=== PATIENT | male | born 1945 | race Caucasian/White ===

== ENCOUNTER → 2016-03-25 | Outpatient (CLI) | payer MEDICARE ==
[2016-03-25 10:06] LABS: PROTHROMBIN TIME 19.5 SEC (11.4-15.4)
== END ==
LOC: OD 09:10
PROVIDERS: ATTEND Internal Medicine
DX: Z79.01 Long term (current) use of anticoagulants (principal)
CPT/HCPCS: 36415; 85610

== ENCOUNTER → 2016-04-21 | Outpatient (CLI) | payer MEDICARE ==
[2016-04-21 09:42] LABS: PROTHROMBIN TIME 18.9 SEC (11.4-15.4)
== END ==
LOC: OD 08:15
PROVIDERS: ATTEND Internal Medicine
DX: Z79.01 Long term (current) use of anticoagulants (principal)
CPT/HCPCS: 36415; 85610

== ENCOUNTER → 2016-05-19 | Outpatient (CLI) | payer MEDICARE ==
[2016-05-19 10:24] LABS: PROTHROMBIN TIME 17.9 SEC (11.4-15.4)
== END ==
LOC: OD 09:13
PROVIDERS: ATTEND Internal Medicine
DX: Z79.01 Long term (current) use of anticoagulants (principal)
CPT/HCPCS: 36415; 85610

== ENCOUNTER → 2016-06-19 | Outpatient (CLI) | payer MEDICARE ==
[2016-06-19 11:58] LABS: PROTHROMBIN TIME 19.5 SEC (11.4-15.4)
== END ==
LOC: OD 10:51
PROVIDERS: ATTEND Internal Medicine
DX: Z79.01 Long term (current) use of anticoagulants (principal)
CPT/HCPCS: 36415; 85610

== ENCOUNTER → 2016-07-27 | Outpatient (CLI) | payer MEDICARE ==
[2016-07-27 10:51] LABS: PROTHROMBIN TIME 21.6 SEC (11.4-15.4)
== END ==
LOC: OD 09:31
PROVIDERS: ATTEND Internal Medicine
DX: Z79.01 Long term (current) use of anticoagulants (principal)
CPT/HCPCS: 36415; 85610

== ENCOUNTER → 2016-08-19 | Outpatient (CLI) | payer MEDICARE ==
[2016-08-19 11:42] LABS: PROTHROMBIN TIME 22.6 SEC (11.4-15.4)
== END ==
LOC: OD 10:41
PROVIDERS: ATTEND Internal Medicine
DX: Z79.01 Long term (current) use of anticoagulants (principal)
CPT/HCPCS: 36415; 85610

== ENCOUNTER → 2016-09-22 | Outpatient (CLI) | payer MEDICARE ==
[2016-09-22 12:21] LABS: PROTHROMBIN TIME 20.2 SEC (11.4-15.4)
== END ==
LOC: OD 11:18
PROVIDERS: ATTEND Internal Medicine
DX: Z79.01 Long term (current) use of anticoagulants (principal)
CPT/HCPCS: 36415; 85610

== ENCOUNTER → 2016-10-19 | Outpatient (CLI) | payer MEDICARE ==
[2016-10-19 12:53] LABS: PROTHROMBIN TIME 24.7 SEC (11.4-15.4)
== END ==
LOC: OD 11:50
PROVIDERS: ATTEND Internal Medicine
DX: Z79.01 Long term (current) use of anticoagulants (principal); Z51.81 Encounter for therapeutic drug level monitoring
CPT/HCPCS: 36415; 85610

== ENCOUNTER → 2016-11-24 | Outpatient (CLI) | payer MEDICARE ==
[2016-11-24 09:33] LABS: PROTHROMBIN TIME 23.3 SEC (11.4-15.4)
== END ==
LOC: OD 07:59
PROVIDERS: ATTEND Internal Medicine
DX: Z79.01 Long term (current) use of anticoagulants (principal)
CPT/HCPCS: 36415; 85610

== ENCOUNTER → 2017-01-19 | Outpatient (CLI) | payer MEDICARE ==
[2017-01-19 11:04] LABS: PROTHROMBIN TIME 26.6 SEC (11.4-15.4)
== END ==
LOC: OD 09:47
PROVIDERS: ATTEND Internal Medicine
DX: R79.1 Abnormal coagulation profile (principal)
CPT/HCPCS: 36415; 85610

== ENCOUNTER 2017-06-20 21:42 | Emergency (ER) | payer MEDICARE ==
--- NOTE | 2017-06-20 22:26 | ER Document Report ---
ED General - General Chief Complaint: Abdominal Pain Stated Complaint: OBED HEARTRATE,ABDOMINAL PAIN Time Seen by Provider: 06/20/17 22:09 Notes: Patient is a 72-year-old male who presents with 1 hour of severe generalized abdominal pain. He does describe this as an aching, stabbing, diffuse abdominal pain. Nothing improves or worsens the pain. He denies any history of similar pain in the past. He denies any known history of aortic pathology. He does have a history of atrial fibrillation is currently anticoagulated on warfarin. He denies fever, diarrhea, vomiting, chest pain or shortness of breath but notes that he had palpitations at the onset of his abdominal discomfort. He has not seen his primary doctor regarding today's concerns. He is currently following with urology for recurrent hematuria. TRAVEL OUTSIDE OF THE [place] IN LAST 30 DAYS: No Past Medical History - General Information source: Patient - Social History Smoking Status: Never Smoker Frequency of alcohol use: None Drug Abuse: None Lives with: Spouse/Significant other Family History: Reviewed & Not Pertinent Review of Systems - Review of Systems Notes: Constitutional: Negative for fever. HENT: Negative for sore throat. Eyes: Negative for visual changes. Cardiovascular: Negative for chest pain. Respiratory: Negative for shortness of breath. Gastrointestinal: Positive for abdominal pain and nausea Genitourinary: Negative for dysuria. Musculoskeletal: Positive for low back pain Skin: Negative for rash. Neurological: Negative for headaches, weakness or numbness. 10 point ROS negative except as marked above and in HPI. Physical Exam - Vital signs Vitals: Temp Pulse Resp BP Pulse Ox 97.9 F 83 16 222/114 H 99 06/20/17 22:02 06/20/17 22:02 06/20/17 22:02 06/20/17 22:02 06/20/17 22:02 Interpretation: Hypertensive Notes: PHYSICAL EXAMINATION: GENERAL: Moderately ill in appearance, diaphoretic and appears uncomfortable HEAD: Atraumatic, normocephalic. EYES: Pupils equal round and reactive to light, extraocular movements intact, sclera anicteric, conjunctiva are normal. ENT: nares patent, oropharynx clear without exudates. Dry mucous membranes. NECK: Normal range of motion, supple without lymphadenopathy LUNGS: Breath sounds clear to auscultation bilaterally and equal. No wheezes rales or rhonchi. HEART: Irregularly irregular rate and rhythm without murmurs ABDOMEN: Soft, no significant localization of abdominal pain on palpation. No rigidity. No organomegaly EXTREMITIES: Normal range of motion, no pitting or edema. No cyanosis. NEUROLOGICAL: No focal neurological deficits. Moves all extremities spontaneously and on command. PSYCH: Moderately anxious SKIN: Warm, Dry, normal turgor, no rashes or lesions noted. Course - Re-evaluation Re-evalutation: 06/20/17 22:24 Presentation of an ill-appearing male diaphoretic with severe hypertension associated abdominal pain. Patient states the abdominal pain started approximately 1 hour prior to arrival and has been ongoing since that time. He does have a history of atrial fibrillation and is anticoagulated with warfarin. Primary diagnostic concerns would be an aortic pathology either dissection or aneurysmal rupture versus possible mesenteric ischemia given his severe hypertension, pain out of proportion to exam on abdominal examination as well as his history of atrial fibrillation. I immediately went to assess this patient. He was placed on crop ranch hand. I did discuss with the patient the need for an immediate CT scan of the abdomen and pelvis. Will perform a CTA to evaluate for both aneurysmal pathology as well as possible mesenteric ischemia. I will not wait for a BUN/creatinine return as this is a very time sensitive diagnosis and I would want to study regardless of the patient's renal function given the severe nature of both possible diagnoses. Patient did complain of some palpitations earlier but denies any distinct chest pain. His EKG does show that he has a atrial fibrillation unchanged from prior. Will also obtain laboratories including coags and troponin. Will continue to reassess the patient frequently and he is considered to be in very guarded condition at this time. 06/20/17 23:02 Patient has had improvement of his blood pressure spontaneously although remains markedly elevated at [address] scan has been completed and results are pending. Labs otherwise unremarkable at this time. Continue to reassess the patient frequently and he overall appears much clinically improved at this time. 06/20/17 23:48 CT scan does demonstrate right-sided hydronephrosis with a possible mass in the left ureter without evidence of a ureteral calculus. The urinalysis shows hematuria but no evidence of infection. The remainder of the patient's laboratories are unremarkable. Pain control has been provided with fentanyl, Toradol with some improvement of the patient's symptoms. He is scheduled to follow-up with his urologist in 1 week regarding hematuria and I have asked him to please contact them sooner if his pain persists and is not completely controlled with medications we are discharging him home with. I have informed the patient that there is a possibility of malignancy in this context and he does understand. At this time will discharge with return precautions and follow -up recommendations. Verbal discharge instructions given a the bedside and opportunity for questions given. Medication warnings reviewed. Patient is in agreement with this plan and has verbalized understanding of return precautions and the need for primary care follow-up in the next 24-72 hours. - Vital Signs Vital signs: Temp Pulse Resp BP Pulse Ox 97.9 F 83 17 147/84 H 95 06/20/17 22:02 06/20/17 22:02 06/21/17 00:01 06/21/17 00:01 06/21/17 00:01 - Laboratory Result Diagrams: 06/20/17 22:20 06/20/17 22:20 Laboratory results interpreted by me: 06/20/17 06/20/17 06/20/17 22:20 22:20 22:20 WBC 10.7 H Seg Neutrophils % 85.7 H Lymphocytes % 8.2 L Absolute Neutrophils 9.2 H PT 30.4 H APTT 41.8 H BUN 25 H Est GFR (Non-Af Amer) 59 L Glucose 170 H Urine Protein Urine Glucose (UA) Urine Ketones Urine Blood 06/20/17 22:45 WBC Seg Neutrophils % Lymphocytes % Absolute Neutrophils PT APTT BUN Est GFR (Non-Af Amer) Glucose Urine Protein 30 H Urine Glucose (UA) 150 H Urine Ketones TRACE H Urine Blood LARGE H - Diagnostic Test Radiology reviewed: Reports reviewed - EKG Interpretation by Me Additional EKG results interpreted by me: 06/21/17 02:20 Atrial fibrillation, 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 No ST elevations or depressions. Critical Care Note - Critical Care Note Total time excluding time spent on procedures (mins): 36 Comments: Critical care time spent obtaining history from patient or surrogate, discussions with consultants, development of treatment plan with patient or surrogate, evaluation of patient's response to treatment, examination of patient , ordering and performing treatments and interventions, ordering and review of laboratory studies, re-evaluation of patient's condition, ordering and review of radiographic studies and review of old charts Discharge - Discharge Clinical Impression: Essential hypertension, Nausea Hydronephrosis Qualifiers: Hydronephrosis type: unspecified Qualified Code(s): N13.30 - Unspecified hydronephrosis Atrial fibrillation Qualifiers: Atrial fibrillation type: unspecified Qualified Code(s): I48.91 - Unspecified atrial fibrillation Abdominal pain Qualifiers: Abdominal location: generalized Qualified Code(s): R10.84 - Generalized abdominal pain Condition: Good Disposition: HOME, SELF-CARE Additional Instructions: Your CT scan does show that you have a blockage in the tube that connects your right kidney to your bladder. There is a possibility that this could be secondary to a malignancy. You need to follow-up with urology at your earliest ability. Please contact urologist tomorrow consider scheduling an appointment sooner than 1 week from now. You have been sent home with [place] which you can use as needed for pain. Alternatively you can take ibuprofen 600 mg and acetaminophen 1000 mg every 6 hours together as needed for pain. You may also take Zofran as needed for nausea or vomiting. Return to the emergency department if you develop persistent vomiting, worsening of your pain, fever greater than 101F, pass out, or have any other symptoms that are worrisome to you. Referrals: PEDRO GOMEZ MD [Primary Care Provider] - Follow up as needed
[2017-06-20 22:34] LABS: ABSOLUTE LYMPHOCYTES (AUTO) 0.9 10^3/uL (0.5-4.7); ABSOLUTE MONOCYTES (AUTO) 0.6 10^3/uL (0.1-1.4); ABSOLUTE NEUT (AUTO) 9.2 10^3/uL (1.7-8.2); BASOPHILS % (AUTO) 0.3 % (0-2); EOSINOPHILS % (AUTO) 0.3 % (0-6); HEMATOCRIT 44.8 % (37.9-51.0); HEMOGLOBIN 15.2 g/dL (13.5-17.0); LYMPHOCYTES % (AUTO) 8.2 % (13-45); MEAN CORPUSCULAR HEMOGLOBIN 31.6 pg (27.0-33.4); MEAN CORPUSCULAR HGB CONC 33.9 g/dL (32.0-36.0); MEAN CORPUSCULAR VOLUME 93 fl (80-97); MONOCYTES % (AUTO) 5.5 % (3-13); PLATELET COUNT 157 10^3/uL (150-450); RED CELL DISTRIBUTION WIDTH 13.7 % (11.5-14.0); SEGMENTED NEUTROPHILS % (AUTO) 85.7 % (42-78); TOTAL CELLS COUNTED % (AUTO) 100 %; WHITE BLOOD COUNT 10.7 10^3/uL (4.0-10.5)
[2017-06-20 22:51] LABS: ALANINE AMINOTRANSFERASE 29 U/L (21-72); ALKALINE PHOSPHATASE 91 U/L (38-126); ANION GAP 16 (5-19); ASPARTATE AMINO TRANSFERASE 27 U/L (17-59); BILIRUBIN,DIRECT 0.2 mg/dL (0.0-0.4); BILIRUBIN,TOTAL 0.9 mg/dL (0.2-1.3); BLOOD UREA NITROGEN 25 mg/dL (7-20); CALCIUM 9.9 mg/dL (8.4-10.2); CARBON DIOXIDE 24 mmol/L (22-30); CHLORIDE 103 mmol/L (98-107); GLUCOSE 170 mg/dL (75-110); SODIUM 143.1 mmol/L (137-145); TOTAL PROTEIN 8.2 g/dL (6.3-8.2)
[2017-06-20 22:55] LABS: INTERNATIONAL RATION (INR) 2.75; PARTIAL THROMBOPLASTIN TIME 41.8 SEC (23.5-35.8); PROTHROMBIN TIME 30.4 SEC (11.4-15.4)
--- NOTE | 2017-06-20 23:07 | RADIOLOGY REPORT (SQ) ---
EXAM DESCRIPTION: CTA ABDOMEN/PELVIS W WO CLINICAL HISTORY: 72 years Male, eval aortic dissection COMPARISON: None. TECHNIQUE: IV contrast. Coronal and sagittal reformat. This exam was performed according to our departmental dose-optimization program, which includes automated exposure control, adjustment of the mA and/or kV according to patient size and/or use of iterative reconstruction technique. FINDINGS: Moderate left hydronephrosis-hydroureter. Moderate left perinephric fat stranding. No obstructive radiopaque stone or lesion identified. 0.3 cm uncomplicated right renal stone. Seven cm right paracentral posterior urinary bladder diverticulum. Atherosclerosis. No aortic dissection, as queried. Mild lumbar dextroconvexity. Moderate coronary arterial calcification stenting. Emphysematous lung bases. Cholelithiasis. Old granulomatous disease of the liver. Minimal bilateral inguinal fat only hernia. Moderate disc desiccation. Inferior thorax, pancreas, adrenals, renal system, gastrointestinal tract, pelvic organs, lymphatics, vasculature, and musculoskeleton appear otherwise unremarkable. IMPRESSION: 1. Moderate grade obstruction of the left renal/ureteral collecting system. No obstructive radiopaque stone or lesion identified. Differential diagnosis includes neoplasm. Urology consultation advised. 2. A 7 cm urinary bladder diverticulum. 3. Cholelithiasis.
[2017-06-20 23:17] LABS: APPEARANCE,URINE CLEAR; BILIRUBIN,URINE NEGATIVE (NEGATIVE); COLOR,URINE STRAW; GLUCOSE, URINE 150 mg/dL (NEGATIVE); KETONES,URINE TRACE mg/dL (NEGATIVE); LEUKOCYTE ESTERASE,URINE NEGATIVE (NEGATIVE); NITRITE,URINE NEGATIVE (NEGATIVE); PROTEIN,URINE 30 mg/dL (NEGATIVE); UROBILINOGEN,URINE NEGATIVE mg/dL (<2.0)
[2017-06-20] MEDS ORDERED: KETOROLAC TROMETHAMINE INJ/PF 30 MG/1 ML SDV IV ONE (23:26)
[2017-06-20] MEDS ORDERED: FENTANYL CITRATE INJ/PF 100 MCG/2 ML AMPUL IV ONE (23:26)
[2017-06-20] MEDS ORDERED: ONDANSETRON HCL INJ/PF 4 MG/2 ML SDV IV ONE (23:26)
[2017-06-20] MEDS ORDERED: ONDANSETRON ODT 4 MG TAB (6 TAB/ER DISP) PO PRN (23:48)
[2017-06-20] MEDS ORDERED: HYDROCODONE/ACETAMINOPHEN 5-325 MG (6 TAB/ER DISP) PO PRN (23:48)
[2017-06-21 00:31] VITALS: BP 147/84
--- NOTE | 2017-06-21 06:16 | EKG REPORT ---
SEVERITY:- ABNORMAL ECG - ATRIAL FIBRILLATION RBBB AND LAFB : Confirmed by: Chip Scott MD 21-Jun-2017 06:15:50
== END 2017-06-21 00:15 | disposition home or self-care (01) ==
LOC: ER 21:42
DX: N13.30 Unspecified hydronephrosis (principal); R10.84 Generalized abdominal pain; I48.91 Unspecified atrial fibrillation; M54.5 Low back pain; I10 Essential (primary) hypertension; R11.0 Nausea; R61 Generalized hyperhidrosis; I45.2 Bifascicular block; Z79.01 Long term (current) use of anticoagulants
CPT/HCPCS: 93005; 99291; 96374; 96375; 86900; 86901; 36415; 86850; 85025; 85610; 85730; 80053; 81001; 84484; 74174; 93010; J3010; J1885; J2405; A9270 ×2

== ENCOUNTER 2017-07-12 15:04 | Inpatient (IN) | payer MEDICARE ==
--- NOTE | 2017-07-12 16:45 | RADIOLOGY REPORT (SQ) ---
EXAM DESCRIPTION: TIBIA FIBULA RIGHT COMPLETED DATE/TIME: 07/12/2017 4:36 pm REASON FOR STUDY: cellulitis of right leg COMPARISON: None. NUMBER OF VIEWS: Two views. TECHNIQUE: Two radiographic images acquired of the right tibia and fibula to include the knee and an kle in at least one projection. LIMITATIONS: None. FINDINGS: MINERALIZATION: Normal. BONES: No acute fracture or dislocation. No worrisome bone lesions. SOFT TISSUES: Vascular calcifications. No foreign body OTHER: No other significant finding. IMPRESSION: No evidence of osteomyelitis. TECHNICAL DOCUMENTATION: JOB ID: [id number] [employer]- All Rights Reserved Reading location - IP/workstation name: [email or web address]
[2017-07-12 17:01] LABS: ABSOLUTE EOSINOPHILS # (AUTO) 0.2 10^3/uL (0.0-0.6); ABSOLUTE LYMPHOCYTES (AUTO) 1.4 10^3/uL (0.5-4.7); ABSOLUTE MONOCYTES (AUTO) 0.8 10^3/uL (0.1-1.4); ABSOLUTE NEUT (AUTO) 3.7 10^3/uL (1.7-8.2); BASOPHILS % (AUTO) 0.4 % (0-2); EOSINOPHILS % (AUTO) 2.9 % (0-6); HEMATOCRIT 41.7 % (37.9-51.0); LYMPHOCYTES % (AUTO) 22.8 % (13-45); MEAN CORPUSCULAR HEMOGLOBIN 31.3 pg (27.0-33.4); MEAN CORPUSCULAR HGB CONC 33.7 g/dL (32.0-36.0); MEAN CORPUSCULAR VOLUME 93 fl (80-97); MONOCYTES % (AUTO) 13.3 % (3-13); PLATELET COUNT 157 10^3/uL (150-450); RED BLOOD COUNT 4.49 10^6/uL (4.35-5.55); RED CELL DISTRIBUTION WIDTH 13.6 % (11.5-14.0); SEGMENTED NEUTROPHILS % (AUTO) 60.6 % (42-78); TOTAL CELLS COUNTED % (AUTO) 100 %
[2017-07-12 17:21] LABS: ALANINE AMINOTRANSFERASE 27 U/L (21-72); ALBUMIN 4.3 g/dL (3.5-5.0); ALKALINE PHOSPHATASE 71 U/L (38-126); ANION GAP 13 (5-19); ASPARTATE AMINO TRANSFERASE 20 U/L (17-59); BILIRUBIN,DIRECT 0.2 mg/dL (0.0-0.4); BLOOD UREA NITROGEN 17 mg/dL (7-20); CALCIUM 9.6 mg/dL (8.4-10.2); CARBON DIOXIDE 30 mmol/L (22-30); CHLORIDE 104 mmol/L (98-107); GLUCOSE 171 mg/dL (75-110); SODIUM 146.6 mmol/L (137-145); TOTAL PROTEIN 7.4 g/dL (6.3-8.2)
[2017-07-12] MEDS: PIPERACILLIN SODIUM/TAZOBACTAM 3.375 GM in NORMAL SALINE 100 ML IV SCH ×2 (17:59→23:25)
[2017-07-12 18:44] LABS: INTERNATIONAL RATION (INR) 3.83; PROTHROMBIN TIME 39.5 SEC (11.4-15.4)
[2017-07-12] MEDS ORDERED: VANCOMYCIN HCL 1,500 MG in DEXTROSE 5%-WATER 250 ML IV ONE (19:00)
[2017-07-12 19:21] LABS: APPEARANCE,URINE CLEAR; BILIRUBIN,URINE NEGATIVE (NEGATIVE); COLOR,URINE YELLOW; GLUCOSE, URINE NEGATIVE (NEGATIVE); KETONES,URINE NEGATIVE (NEGATIVE); LEUKOCYTE ESTERASE,URINE NEGATIVE (NEGATIVE); NITRITE,URINE NEGATIVE (NEGATIVE); PROTEIN,URINE NEGATIVE (NEGATIVE); UROBILINOGEN,URINE NEGATIVE mg/dL (<2.0)
[2017-07-12] MEDS ORDERED: LISINOPRIL 10 MG TABLET PO ONE (19:30)
[2017-07-12] MEDS ORDERED: FINASTERIDE 5 MG TABLET PO ONE (19:30)
[2017-07-12] MEDS ORDERED: METOPROLOL TARTRATE 50 MG TABLET PO ONE (19:30)
[2017-07-12] MEDS ORDERED: ASPIRIN 81 MG TABLET, ENT COATED PO ONE (19:30)
[2017-07-12] MEDS ORDERED: MULTIVITAMIN TABLET PO ONE (19:30)
--- NOTE | 2017-07-12 21:39 | PDOC H&P ---
History of Present Illness Admission Date/PCP: 07/12/17 15:04 PEDRO GOMEZ MD History of Present Illness: CHATA CLIFTON is a 72 year old male, He has a history of chronic atrial fibrillation, nonobstructive coronary artery disease, obstructive uropathy scheduled for urologic intervention by mid month, he came to the office today for evaluation of extensive redness, swelling of the right leg consistent with severe cellulitis, unlikely to be deep vein thrombosis because patient is on chronic anticoagulant with Coumadin, INR is 3.8. The skin was warm to touch , it was tender, he was admitted directly from the office to the hospital for further evaluation and management. It was felt that patient would need intravenous antibiotic because of the degree of the cellulitis,it extends from the foot to the mid thigh Past Medical History Psychiatric Medical History: Denies: Depression Social History Smoking Status: Former Smoker Number of Years Smokin Frequency of Alcohol Use: None Drugs: None Hx Prescription Drug Abuse: No Family History Family History: Reviewed & Not Pertinent Parental Family History Reviewed: Yes Children Family History Reviewed: Yes Sibling(s) Family History Reviewed.: Yes Medication/Allergy Home Medications: Aspirin [Aspirin EC] 81 mg PO DAILY 07/12/17 Finasteride [Proscar 5 mg Tablet] 5 mg PO DAILY 07/12/17 Lisinopril [Prinivil 40 mg Tablet] 40 mg PO DAILY 07/12/17 Metoprolol Tartrate [Lopressor 50 mg Tablet] 50 mg PO Q12H 07/12/17 Multivitamin [Daily Multiple Vitamin] 1 each PO DAILY 07/12/17 Simvastatin [Zocor 40 mg Tablet] 40 mg PO QHS 07/12/17 Warfarin Sodium [Coumadin] 10 mg PO DAILY 07/12/17 Allergies/Adverse Reactions: No Known Allergies Allergy (Unverified 07/12/17 17:00) Review of Systems Constitutional: ABSENT: chills, fever(s), headache(s), weight gain, weight loss Eyes: ABSENT: visual disturbances Ears: ABSENT: hearing changes Cardiovascular: ABSENT: chest pain, dyspnea on exertion, edema, orthropnea, palpitations Respiratory: ABSENT: cough, hemoptysis Gastrointestinal: ABSENT: abdominal pain, constipation, diarrhea, hematemesis, hematochezia, nausea, vomiting Genitourinary: ABSENT: dysuria, hematuria Musculoskeletal: ABSENT: joint swelling Integumentary: ABSENT: rash, wounds Neurological: ABSENT: abnormal gait, abnormal speech, confusion, dizziness, focal weakness, syncope Psychiatric: ABSENT: anxiety, depression, homidical ideation, suicidal ideation Endocrine: ABSENT: cold intolerance, heat intolerance, menstrual abnormalities, polydipsia, polyuria Hematologic/Lymphatic: ABSENT: easy bleeding, easy bruising, lymphadenopathy Physical Exam Vital Signs: Temp Pulse Resp BP Pulse Ox 98.4 F 65 20 153/90 H 100 07/12/17 19:54 07/12/17 19:54 07/12/17 19:54 07/12/17 19:54 07/12/17 19:54 Intake & Output 07/11/17 07/12/17 07/13/17 06:59 06:59 06:59 Intake Total 100 Output Total 0 Balance 100 Weight 113.353 kg General appearance: PRESENT: no acute distress, well-developed, well-nourished Head exam: PRESENT: atraumatic, normocephalic Eye exam: PRESENT: conjunctiva pink, EOMI, PERRLA Ear exam: PRESENT: normal external ear exam Mouth exam: PRESENT: moist, tongue midline Neck exam: PRESENT: full ROM Respiratory exam: PRESENT: clear to auscultation kieran Cardiovascular exam: PRESENT: RRR, +S1, +S2 Vascular exam: PRESENT: normal capillary refill GI/Abdominal exam: PRESENT: normal bowel sounds, soft Rectal exam: PRESENT: deferred Extremities exam: PRESENT: other - There is right lower extremity swelling, redness and tenderness Neurological exam: PRESENT: alert, awake, oriented to person, oriented to place , oriented to time, oriented to situation, CN II-XII grossly intact Psychiatric exam: PRESENT: appropriate affect, normal mood Skin exam: PRESENT: dry, intact, warm Results Laboratory Results: 07/12/17 16:45 07/12/17 16:45 07/12/17 07/12/17 07/12/17 16:45 16:45 19:05 WBC 6.0 RBC 4.49 Hgb 14.0 Hct 41.7 MCV 93 MCH 31.3 MCHC 33.7 RDW 13.6 Plt Count 157 Seg Neutrophils % 60.6 Lymphocytes % 22.8 Monocytes % 13.3 H Eosinophils % 2.9 Basophils % 0.4 Absolute Neutrophils 3.7 Absolute Lymphocytes 1.4 Absolute Monocytes 0.8 Absolute Eosinophils 0.2 Absolute Basophils 0.0 Sodium 146.6 H Potassium 4.0 Chloride 104 Carbon Dioxide 30 Anion Gap 13 BUN 17 Creatinine 1.01 Est GFR ( Amer) > 60 Est GFR (Non-Af Amer) > 60 Glucose 171 H Calcium 9.6 Total Bilirubin 1.0 AST 20 ALT 27 Alkaline Phosphatase 71 Total Protein 7.4 Albumin 4.3 Urine Color YELLOW Urine Appearance CLEAR Urine pH 6.0 Ur Specific [place] 1.010 Urine Protein NEGATIVE Urine Glucose (UA) NEGATIVE Urine Ketones NEGATIVE Urine Blood LARGE H Urine Nitrite NEGATIVE Ur Leukocyte Esterase NEGATIVE Urine WBC (Auto) 2 Urine RBC (Auto) 63 Impressions: Tibia/Fibula X-Ray 07/12/17 15:53 IMPRESSION: No evidence of osteomyelitis. Assessment & Plan - Diagnosis (1) Cellulitis of right lower leg Is this a current diagnosis for this admission?: Yes
[2017-07-12] MEDS: WARFARIN SODIUM 5 MG TABLET PO SCH (21:49)
[2017-07-12] MEDS: SIMVASTATIN 40 MG TABLET PO SCH (21:56)
[2017-07-12] MEDS ORDERED: WARFARIN SODIUM 5 MG TABLET PO SCH (22:00)
[2017-07-12] MEDS: ACETAMINOPHEN 325 MG TABLET PO PRN (23:24)
[2017-07-13] MEDS: PIPERACILLIN SODIUM/TAZOBACTAM 3.375 GM in NORMAL SALINE 100 ML IV SCH ×3 (05:46→18:33)
[2017-07-13] MEDS: METOPROLOL TARTRATE 50 MG TABLET PO SCH ×2 (05:46→18:31)
[2017-07-13 05:49] LABS: HEMATOCRIT 40.9 % (37.9-51.0); MEAN CORPUSCULAR HEMOGLOBIN 31.8 pg (27.0-33.4); MEAN CORPUSCULAR HGB CONC 34.3 g/dL (32.0-36.0); MEAN CORPUSCULAR VOLUME 93 fl (80-97); PLATELET COUNT 156 10^3/uL (150-450); RED BLOOD COUNT 4.41 10^6/uL (4.35-5.55); RED CELL DISTRIBUTION WIDTH 13.8 % (11.5-14.0); WHITE BLOOD COUNT 6.3 10^3/uL (4.0-10.5)
[2017-07-13] MEDS: VANCOMYCIN HCL 1,500 MG in DEXTROSE 5%-WATER 250 ML IV SCH ×2 (10:19→21:27)
[2017-07-13] MEDS: ASPIRIN 81 MG TABLET, ENT COATED PO SCH (10:19)
[2017-07-13] MEDS: LISINOPRIL 10 MG TABLET PO SCH (10:20)
[2017-07-13] MEDS: FINASTERIDE 5 MG TABLET PO SCH (10:20)
[2017-07-13] MEDS: MULTIVITAMIN TABLET PO SCH (10:20)
--- NOTE | 2017-07-13 11:04 | XCELERA REPORT ---
[address] [address] Lower Extremity Venous Evaluation Name: CHATA CLIFTON Age: 72 yrs Gender: Male : 1945 Patient Status: Inpatient Patient Location: [address] [place] [address] Study Date: 07/13/2017 09:10 AM Procedure: Color flow and duplex imaging of the veins of the right lower extremity as well as the left Common Femoral vein. Reason For Study: Cellulitis of right leg Ordering Physician: PEDRO GOMEZ Performed By: Rebecca Crawford Right Sided Venous Evaluation Enlarged Greater Saphenous below knee, with no flow. Reflux noted in Femoral, Popliteal and Greater Saphenous veins. Otherwise normal vessel filling wall to wall, compression and augmentation as well as Colour flow down to the infrageniculate veins. Left Sided Venous Evaluation The left common femoral vein is fully compressible. Spontaneous and phasic flow is present in the left common femoral vein. Interpretation Summary No duplex evidence of DVT or obstruction in the right lower extremity nor in the left Common Femoral vein. Superficial vein phlebitis, as noted. also deep and superficial reflux. : PEDRO GOMEZ > Munir Zamora
[2017-07-13] MEDS ORDERED: KETOROLAC TROMETHAMINE INJ/PF 30 MG/1 ML SDV IV ONE (18:30)
[2017-07-13 18:47] LABS: INTERNATIONAL RATION (INR) 4.67; PROTHROMBIN TIME 46.1 SEC (11.4-15.4)
--- NOTE | 2017-07-13 21:20 | PDOC PROGRESS REPORT ---
Subjective Progress Note for:: 07/13/17 Subjective:: Patient was admitted yesterday for the management of severe cellulitis affecting the right lower extremities, there is some improvement in the inflammatory process he has an area of severe tenderness highly suspicious for superficial phlebitis, Doppler of the lower extremity was done today there was no DVT but it confirmed superficial phlebitis and also valvular insufficiency of the lower extremity vein. Reason For Visit: SEVERE CELLULITIS RIGHT LEG Physical Exam Vital Signs: Temp Pulse Resp BP Pulse Ox 98.4 F 62 16 142/95 H 100 07/13/17 19:14 07/13/17 19:14 07/13/17 19:14 07/13/17 19:14 07/13/17 19:14 Intake & Output 07/12/17 07/13/17 07/14/17 06:59 06:59 06:59 Intake Total 740 1398 Output Total 0 Balance 740 1398 Weight 113.1 kg General appearance: PRESENT: no acute distress Eye exam: PRESENT: PERRLA Respiratory exam: PRESENT: clear to auscultation kieran Cardiovascular exam: PRESENT: +S1, +S2 GI/Abdominal exam: PRESENT: soft Extremities exam: PRESENT: tenderness, other - Tenderness, redness of the right lower extremity Neurological exam: PRESENT: alert Results Laboratory Results: 07/13/17 05:17 07/12/17 16:45 07/13/17 05:17 WBC 6.3 RBC 4.41 Hgb 14.0 Hct 40.9 MCV 93 MCH 31.8 MCHC 34.3 RDW 13.8 Plt Count 156 Impressions: Tibia/Fibula X-Ray 07/12/17 15:53 IMPRESSION: No evidence of osteomyelitis. Assessment & Plan - Diagnosis (1) Cellulitis of right lower leg Is this a current diagnosis for this admission?: Yes (2) Chronic atrial fibrillation Is this a current diagnosis for this admission?: Yes (3) Superficial phlebitis and thrombophlebitis of right lower extremity Is this a current diagnosis for this admission?: Yes Plan: Give 2 doses of Toradol IV
[2017-07-13] MEDS: WARFARIN SODIUM 5 MG TABLET PO SCH (21:27)
[2017-07-13] MEDS: SIMVASTATIN 40 MG TABLET PO SCH (21:27)
[2017-07-14] MEDS: PIPERACILLIN SODIUM/TAZOBACTAM 3.375 GM in NORMAL SALINE 100 ML IV SCH ×4 (00:09→17:02)
[2017-07-14] MEDS: KETOROLAC TROMETHAMINE INJ/PF 30 MG/1 ML SDV IV SCH ×4 (00:09→17:02)
[2017-07-14] MEDS: METOPROLOL TARTRATE 50 MG TABLET PO SCH ×2 (06:53→17:03)
[2017-07-14] MEDS: MULTIVITAMIN TABLET PO SCH (09:28)
[2017-07-14] MEDS: ASPIRIN 81 MG TABLET, ENT COATED PO SCH (09:28)
[2017-07-14] MEDS: FINASTERIDE 5 MG TABLET PO SCH (10:00)
[2017-07-14] MEDS: LISINOPRIL 10 MG TABLET PO SCH (10:00)
[2017-07-14] MEDS: VANCOMYCIN HCL 1,500 MG in DEXTROSE 5%-WATER 250 ML IV SCH (10:01)
[2017-07-14 18:55] LABS: INTERNATIONAL RATION (INR) 4.98; PROTHROMBIN TIME 48.5 SEC (11.4-15.4)
--- NOTE | 2017-07-14 20:42 | PDOC PROGRESS REPORT ---
Subjective Progress Note for:: 07/14/17 Subjective:: Patient was seen by the bedside there is improvement of the cellulitis of the right leg on present antibiotic regimen but he has sustained acute kidney injury , I will avoid nephrotoxins including vancomycin, I will discontinue vancomycin and also Zosyn will transition to a kidney friendly antibiotic clindamycin that also cover potential pathogens including MRSA gram-positive and some gram- negative organisms. The acute kidney injury could also be from the use of IV Toradol for the inflammatory pain he was experiencing on the right leg Reason For Visit: SEVERE CELLULITIS RIGHT LEG Physical Exam Vital Signs: Temp Pulse Resp BP Pulse Ox 97.3 F 68 19 124/71 100 07/14/17 16:05 07/14/17 16:05 07/14/17 16:05 07/14/17 16:05 07/14/17 16:05 Intake & Output 07/13/17 07/14/17 07/15/17 06:59 06:59 06:59 Intake Total 740 3090 1248 Output Total 0 Balance 740 3090 1248 Weight 113.1 kg 114.2 kg General appearance: PRESENT: no acute distress Eye exam: PRESENT: PERRLA Respiratory exam: PRESENT: clear to auscultation kieran Cardiovascular exam: PRESENT: +S1, +S2 GI/Abdominal exam: PRESENT: soft Extremities exam: PRESENT: tenderness - There is tenderness of the right lower leg, other Neurological exam: PRESENT: alert Results Laboratory Results: 07/13/17 05:17 07/14/17 09:52 07/14/17 09:52 Creatinine 1.38 H Est GFR ( Amer) > 60 Est GFR (Non-Af Amer) 51 L 07/12/17 19:05 Clean Catch Midstream Urine Culture - Final NO GROWTH 2 DAYS Impressions: Tibia/Fibula X-Ray 07/12/17 15:53 IMPRESSION: No evidence of osteomyelitis. Assessment & Plan - Diagnosis (1) Cellulitis of right lower leg Is this a current diagnosis for this admission?: Yes (2) Chronic atrial fibrillation Is this a current diagnosis for this admission?: Yes (3) Superficial phlebitis and thrombophlebitis of right lower extremity Is this a current diagnosis for this admission?: Yes (4) Acute kidney injury Is this a current diagnosis for this admission?: Yes Plan: We will discontinue vancomycin, Zosyn and Toradol these are potential etiology of the acute kidney injury, we start IV clindamycin for the cellulitis
[2017-07-14] MEDS: CLINDAMYCIN 600 MG/D5W RTU 600 MG/50 ML RTUPB IV SCH (21:26)
[2017-07-14] MEDS: SIMVASTATIN 40 MG TABLET PO SCH (21:26)
[2017-07-14] MEDS: WARFARIN SODIUM 5 MG TABLET PO SCH (21:26)
[2017-07-15] MEDS: METOPROLOL TARTRATE 50 MG TABLET PO SCH ×2 (06:01→17:44)
[2017-07-15] MEDS: CLINDAMYCIN 600 MG/D5W RTU 600 MG/50 ML RTUPB IV SCH ×3 (06:02→21:06)
[2017-07-15] MEDS: FINASTERIDE 5 MG TABLET PO SCH (09:37)
[2017-07-15] MEDS: LISINOPRIL 10 MG TABLET PO SCH (09:37)
[2017-07-15] MEDS: MULTIVITAMIN TABLET PO SCH (09:39)
[2017-07-15] MEDS: ASPIRIN 81 MG TABLET, ENT COATED PO SCH (09:39)
[2017-07-15 14:42] LABS: ALANINE AMINOTRANSFERASE 21 U/L (21-72); ALBUMIN 3.9 g/dL (3.5-5.0); ALKALINE PHOSPHATASE 60 U/L (38-126); ANION GAP 13 (5-19); ASPARTATE AMINO TRANSFERASE 17 U/L (17-59); BILIRUBIN,DIRECT 0.4 mg/dL (0.0-0.4); BILIRUBIN,TOTAL 0.6 mg/dL (0.2-1.3); BLOOD UREA NITROGEN 27 mg/dL (7-20); CALCIUM 9.1 mg/dL (8.4-10.2); CARBON DIOXIDE 28 mmol/L (22-30); CHLORIDE 106 mmol/L (98-107); GLUCOSE 144 mg/dL (75-110); POTASSIUM 5.1 mmol/L (3.6-5.0); SODIUM 146.5 mmol/L (137-145); TOTAL PROTEIN 6.7 g/dL (6.3-8.2)
[2017-07-15 19:25] LABS: INTERNATIONAL RATION (INR) 5.33; PROTHROMBIN TIME 51.2 SEC (11.4-15.4)
[2017-07-15] MEDS: SIMVASTATIN 40 MG TABLET PO SCH (21:05)
--- NOTE | 2017-07-15 21:44 | PDOC PROGRESS REPORT ---
Subjective Progress Note for:: 07/15/17 Subjective:: Patient was seen by the bedside, yesterday he was taken off vancomycin,, IV Toradol, because of acute kidney injury, he was then started on IV clindamycin. The kidney function is improved from today's lab work but the cellulitis of the right leg seems to have worsen since the antibiotic was changed yesterday, this is expected from clindamycinIt is a bacteriocidal antibiotic, it will initially worsen the cellulitis before it gets better Reason For Visit: SEVERE CELLULITIS RIGHT LEG Physical Exam Vital Signs: Temp Pulse Resp BP Pulse Ox 98.4 F 63 20 142/76 H 100 07/15/17 19:45 07/15/17 19:45 07/15/17 19:45 07/15/17 19:45 07/15/17 19:45 Intake & Output 07/14/17 07/15/17 07/16/17 06:59 06:59 06:59 Intake Total 3090 1987 1475 Balance 3090 1987 147 Weight 114.2 kg 114.9 kg General appearance: PRESENT: no acute distress Respiratory exam: PRESENT: clear to auscultation kieran Cardiovascular exam: PRESENT: irregular rhythm, +S1, +S2 GI/Abdominal exam: PRESENT: soft Extremities exam: PRESENT: other - There is redness of the right lower extremity Neurological exam: PRESENT: alert Results Laboratory Results: 07/13/17 05:17 07/15/17 13:55 07/15/17 13:55 Sodium 146.5 H Potassium 5.1 H Chloride 106 Carbon Dioxide 28 Anion Gap 13 BUN 27 H Creatinine 1.16 Est GFR ( Amer) > 60 Est GFR (Non-Af Amer) > 60 Glucose 144 H Calcium 9.1 Total Bilirubin 0.6 AST 17 ALT 21 Alkaline Phosphatase 60 Total Protein 6.7 Albumin 3.9 Impressions: Tibia/Fibula X-Ray 07/12/17 15:53 IMPRESSION: No evidence of osteomyelitis. Assessment & Plan - Diagnosis (1) Cellulitis of right lower leg Is this a current diagnosis for this admission?: Yes Plan: Continue IV antibiotic (2) Warfarin-induced coagulopathy Is this a current diagnosis for this admission?: Yes (3) Chronic atrial fibrillation Is this a current diagnosis for this admission?: Yes
[2017-07-16] MEDS: CLINDAMYCIN 600 MG/D5W RTU 600 MG/50 ML RTUPB IV SCH ×3 (05:14→22:34)
[2017-07-16] MEDS: METOPROLOL TARTRATE 50 MG TABLET PO SCH ×2 (05:14→17:54)
[2017-07-16 08:43] LABS: ABSOLUTE EOSINOPHILS # (AUTO) 0.2 10^3/uL (0.0-0.6); ABSOLUTE LYMPHOCYTES (AUTO) 1.2 10^3/uL (0.5-4.7); ABSOLUTE MONOCYTES (AUTO) 0.8 10^3/uL (0.1-1.4); ABSOLUTE NEUT (AUTO) 3.2 10^3/uL (1.7-8.2); BASOPHILS % (AUTO) 0.4 % (0-2); EOSINOPHILS % (AUTO) 3.9 % (0-6); HEMATOCRIT 40.2 % (37.9-51.0); HEMOGLOBIN 13.6 g/dL (13.5-17.0); MEAN CORPUSCULAR HEMOGLOBIN 31.6 pg (27.0-33.4); MEAN CORPUSCULAR HGB CONC 33.8 g/dL (32.0-36.0); MEAN CORPUSCULAR VOLUME 94 fl (80-97); MONOCYTES % (AUTO) 15.3 % (3-13); PLATELET COUNT 159 10^3/uL (150-450); RED BLOOD COUNT 4.29 10^6/uL (4.35-5.55); RED CELL DISTRIBUTION WIDTH 13.5 % (11.5-14.0); SEGMENTED NEUTROPHILS % (AUTO) 58.4 % (42-78); TOTAL CELLS COUNTED % (AUTO) 100 %; WHITE BLOOD COUNT 5.5 10^3/uL (4.0-10.5)
[2017-07-16 08:51] LABS: INTERNATIONAL RATION (INR) 3.43; PROTHROMBIN TIME 36.2 SEC (11.4-15.4)
[2017-07-16] MEDS: LISINOPRIL 10 MG TABLET PO SCH (08:54)
[2017-07-16] MEDS: FINASTERIDE 5 MG TABLET PO SCH (08:54)
[2017-07-16 09:05] LABS: ANION GAP 14 (5-19); BLOOD UREA NITROGEN 22 mg/dL (7-20); CALCIUM 9.1 mg/dL (8.4-10.2); CARBON DIOXIDE 29 mmol/L (22-30); CHLORIDE 104 mmol/L (98-107); GLUCOSE 208 mg/dL (75-110); POTASSIUM 4.9 mmol/L (3.6-5.0); SODIUM 146.6 mmol/L (137-145)
[2017-07-16] MEDS: ACETAMINOPHEN 325 MG TABLET PO PRN (19:30)
--- NOTE | 2017-07-16 20:56 | PDOC PROGRESS REPORT ---
Subjective Progress Note for:: 07/16/17 Subjective:: Patient is seen by the bedside the cellulitis is improved, the medication was transitioned to IV clindamycin, there is still some redness, he will be discharged home tomorrow Reason For Visit: SEVERE CELLULITIS RIGHT LEG Physical Exam Vital Signs: Temp Pulse Resp BP Pulse Ox 98.3 F 69 22 H 162/86 H 99 07/16/17 19:41 07/16/17 19:41 07/16/17 19:41 07/16/17 19:41 07/16/17 19:41 Intake & Output 07/15/17 07/16/17 07/17/17 06:59 06:59 06:59 Intake Total 19875 1079 Balance 1987 2174 1080 Weight 114.9 kg 113.1 kg 113.1 kg General appearance: PRESENT: no acute distress, well-developed, well-nourished Head exam: PRESENT: atraumatic, normocephalic Eye exam: PRESENT: conjunctiva pink, EOMI, PERRLA Ear exam: PRESENT: normal external ear exam Mouth exam: PRESENT: moist, tongue midline Neck exam: PRESENT: full ROM Respiratory exam: PRESENT: clear to auscultation kieran Cardiovascular exam: PRESENT: RRR, +S1, +S2 Pulses: PRESENT: normal dorsalis pedis pul, +2 pedal pulses bilateral GI/Abdominal exam: PRESENT: normal bowel sounds, soft Rectal exam: PRESENT: deferred Neurological exam: PRESENT: alert, awake, oriented to person, oriented to place , oriented to time, oriented to situation, CN II-XII grossly intact. ABSENT: motor sensory deficit Psychiatric exam: PRESENT: appropriate affect, normal mood Skin exam: PRESENT: dry, intact, warm Results Laboratory Results: 07/16/17 08:24 07/16/17 08:24 07/16/17 07/16/17 08:24 08:24 WBC 5.5 RBC 4.29 L Hgb 13.6 Hct 40.2 MCV 94 MCH 31.6 MCHC 33.8 RDW 13.5 Plt Count 159 Seg Neutrophils % 58.4 Lymphocytes % 22.0 Monocytes % 15.3 H Eosinophils % 3.9 Basophils % 0.4 Absolute Neutrophils 3.2 Absolute Lymphocytes 1.2 Absolute Monocytes 0.8 Absolute Eosinophils 0.2 Absolute Basophils 0.0 Sodium 146.6 H Potassium 4.9 Chloride 104 Carbon Dioxide 29 Anion Gap 14 BUN 22 H Creatinine 1.10 Est GFR ( Amer) > 60 Est GFR (Non-Af Amer) > 60 Glucose 208 H Calcium 9.1 Impressions: Tibia/Fibula X-Ray 07/12/17 15:53 IMPRESSION: No evidence of osteomyelitis. Assessment & Plan - Diagnosis (1) Cellulitis of right lower leg Is this a current diagnosis for this admission?: Yes (2) Warfarin-induced coagulopathy Is this a current diagnosis for this admission?: Yes (3) Chronic atrial fibrillation Is this a current diagnosis for this admission?: Yes
[2017-07-16] MEDS ORDERED: WARFARIN SODIUM 3 MG TABLET PO SCH (22:00)
[2017-07-16] MEDS: SIMVASTATIN 40 MG TABLET PO SCH (22:34)
[2017-07-17 00:28] LABS: APPEARANCE,URINE CLEAR; BILIRUBIN,URINE NEGATIVE (NEGATIVE); COLOR,URINE YELLOW; GLUCOSE, URINE NEGATIVE (NEGATIVE); KETONES,URINE NEGATIVE (NEGATIVE); LEUKOCYTE ESTERASE,URINE NEGATIVE (NEGATIVE); NITRITE,URINE NEGATIVE (NEGATIVE); PROTEIN,URINE 30 mg/dL (NEGATIVE); URINE SPECIFIC GRAVITY 1.015
[2017-07-17 05:13] LABS: INTERNATIONAL RATION (INR) 3.03; PROTHROMBIN TIME 32.8 SEC (11.4-15.4)
[2017-07-17] MEDS: METOPROLOL TARTRATE 50 MG TABLET PO SCH (05:24)
[2017-07-17] MEDS: CLINDAMYCIN 600 MG/D5W RTU 600 MG/50 ML RTUPB IV SCH (05:24)
[2017-07-17] MEDS: FINASTERIDE 5 MG TABLET PO SCH (09:55)
[2017-07-17] MEDS: LISINOPRIL 10 MG TABLET PO SCH (09:55)
[2017-07-17] MEDS: ACETAMINOPHEN 325 MG TABLET PO PRN (09:55)
[2017-07-17 11:58] VITALS: BP 134/74
--- NOTE | 2017-07-17 14:08 | PDOC DISCHARGE SUMMARY ---
General - Admit/Disc Date/PCP Admission Date/Primary Care Provider: 07/12/17 15:04 PEDRO GOMEZ MD Discharge Date: 07/17/17 - Discharge Diagnosis (1) Cellulitis of right lower leg Is this a current diagnosis for this admission?: Yes (2) Warfarin-induced coagulopathy Is this a current diagnosis for this admission?: Yes (3) Chronic atrial fibrillation Is this a current diagnosis for this admission?: Yes (4) Acute kidney injury Is this a current diagnosis for this admission?: Yes - Additional Information Prescriptions: RX: Clindamycin HCl 300 mg PO Q8H #21 capsule Home Medications: RX: Finasteride [Proscar 5 mg Tablet] 5 mg PO DAILY 07/12/17 RX: Lisinopril [Prinivil 40 mg Tablet] 40 mg PO DAILY 07/12/17 RX: Metoprolol Tartrate [Lopressor 50 mg Tablet] 50 mg PO Q12H 07/12/17 RX: Multivitamin [Daily Multiple Vitamin] 1 each PO DAILY 07/12/17 RX: Simvastatin [Zocor 40 mg Tablet] 40 mg PO QHS 07/12/17 RX: Warfarin Sodium [Coumadin] 10 mg PO DAILY 07/12/17 RX: Clindamycin HCl 300 mg PO Q8H #21 capsule 07/17/17 History of Present Illness History of Present Illness: CHATA CLIFTON is a 72 year old male, He has a history of chronic atrial fibrillation, nonobstructive coronary artery disease, obstructive uropathy scheduled for urologic intervention by mid month, he came to the office today for evaluation of extensive redness, swelling of the right leg consistent with severe cellulitis, unlikely to be deep vein thrombosis because patient is on chronic anticoagulant with Coumadin, INR is 3.8. The skin was warm to touch , it was tender, he was admitted directly from the office to the hospital for further evaluation and management. It was felt that patient would need intravenous antibiotic because of the degree of the cellulitis,it extends from the foot to the mid thigh Hospital Course Hospital Course: Patient was admitted for the management of extensive cellulitis affecting the right lower extremity, he was treated with IV antibiotic empirically initially with Zosyn and vancomycin he also had IV Toradol for pain control the cellulitis improve significantly with this choice of antibiotic but he developed acute kidney injury, the antibiotic was changed to IV clindamycin. Patient is scheduled for a urologic procedure on the of this month, he is on Coumadin chronically for stroke prophylaxis because of his atrial fibrillation. He is to stop the Coumadin for 5 days before the procedure, it was recommended that he uses Lovenox bridge for 4 days but he is not able to afford the Lovenox outpatient. The INR was supratherapeutic on this admission felt to be due to the antibiotic usage. To be discharged home today we will continue the antibiotic Physical Exam Vital Signs: Temp Pulse Resp BP Pulse Ox 97.5 F 55 L 16 134/74 H 97 07/17/17 11:53 07/17/17 11:53 07/17/17 11:53 07/17/17 11:53 07/17/17 11:53 Intake & Output 07/16/17 07/17/17 07/18/17 06:59 06:59 06:59 Intake Total 2175 2280 474 Output Total 200 300 Balance 2175 2080 174 Weight 113.1 kg 111.7 kg General appearance: PRESENT: no acute distress, well-developed, well-nourished Head exam: PRESENT: atraumatic, normocephalic Eye exam: PRESENT: conjunctiva pink, EOMI, PERRLA Ear exam: PRESENT: normal external ear exam Mouth exam: PRESENT: moist, tongue midline Neck exam: PRESENT: full ROM Respiratory exam: PRESENT: clear to auscultation kieran Cardiovascular exam: PRESENT: RRR, +S1, +S2 Pulses: PRESENT: normal dorsalis pedis pul, +2 pedal pulses bilateral Vascular exam: PRESENT: normal capillary refill GI/Abdominal exam: PRESENT: normal bowel sounds, soft Rectal exam: PRESENT: deferred Extremities exam: PRESENT: other - There is redness of the right lower extremity Neurological exam: PRESENT: alert, awake, oriented to person, oriented to place , oriented to time, oriented to situation, CN II-XII grossly intact Psychiatric exam: PRESENT: appropriate affect, normal mood Skin exam: PRESENT: dry, intact, warm Results Laboratory Results: 07/16/17 08:24 07/16/17 08:24 07/17/17 07/17/17 00:14 00:14 Urine Color YELLOW Urine Appearance CLEAR Urine pH 5.0 Ur Specific [place]sey 1.015 Urine Protein 30 H Urine Glucose (UA) NEGATIVE Urine Ketones NEGATIVE Urine Blood NEGATIVE Urine Nitrite NEGATIVE Ur Leukocyte Esterase NEGATIVE Urine WBC (Auto) 0 Urine RBC (Auto) 1 Stool Occult Blood NEGATIVE Impressions: Tibia/Fibula X-Ray 07/12/17 15:53 IMPRESSION: No evidence of osteomyelitis. Qualifiers - * PATIENT BEING DISCHARGED WITH ANY OF THE FOLLOWING DIAGNOSIS: No
== END 2017-07-17 14:24 | disposition home or self-care (01) | DRG 603 ==
LOC: 3S 15:04
PROVIDERS: ADMIT Internal Medicine; ATTEND Internal Medicine
DX: L03.115 Cellulitis of right lower limb (principal); N17.9 Acute kidney failure, unspecified; I80.01 Phlebitis and thrombophlebitis of superficial vessels of right lower extremity; I48.2 Chronic atrial fibrillation; I25.10 Atherosclerotic heart disease of native coronary artery without angina pectoris; N13.9 Obstructive and reflux uropathy, unspecified; Z79.01 Long term (current) use of anticoagulants; Z87.891 Personal history of nicotine dependence
CPT/HCPCS: 36415; 80048; 80053; 80076; 80202; 81001; 82272; 82565; 85025; 85027; 85610; 87040; 87086; 93971; J1885; J2543; J3370; J7060

== ENCOUNTER → 2017-07-27 | Outpatient (CLI) | payer MEDICARE ==
--- NOTE | 2017-07-27 13:12 | RADIOLOGY REPORT (SQ) ---
EXAM DESCRIPTION: MRI RT LOWER EXTREMITY WITHOUT COMPLETED DATE/TIME: 07/27/2017 12:51 pm REASON FOR STUDY: LOCALIZED SWELLING, MASS AND LUMP RIGHT LOWER LIMB (R22.41) R22.41 LOCALIZED SWEL LING, MASS AND LUMP, RIGHT LOWER LIMB COMPARISON: Recent radiographs. TECHNIQUE: Multiplanar imaging to include fat and fluid sensitive sequences. RENAL FUNCTION: Not applicable. LIMITATIONS: None. FINDINGS: MASS SIGNAL CHARACTERISTICS: LOCATION: Medial subcutaneous tissues along the distal scratch sat medial deep subcutaneous tissues a long the distal leg. SIGNAL CHARACTERISTICS: Isointense T1 with a rim of high T1 signal. Generally hyperintense T2 with a rim of low signal. Likely related to a hematoma. Just anterior and superior to this is a 2nd 1 cm similar probable hematoma. MEASUREMENTS: 5.9 cm craniocaudal. 3.8 cm x 1.9 cm AP by transverse. MARROW SIGNAL IN ADJACENT BONES: Normal. OTHER SIGNIFICANT BONE, JOINT OR SOFT TISSUE FINDINGS: Subcutaneous venous varicosities along the med ial leg regionally. IMPRESSION: 1. Varicose veins. 2. Probable hematoma along the medial distal leg. 3. No evidence of fracture. TECHNICAL DOCUMENTATION: JOB ID: [id number] [employer]- All Rights Reserved Reading location - IP/workstation name: [email or web address]
== END ==
LOC: RAD 12:00
PROVIDERS: ATTEND Internal Medicine
DX: R22.41 Localized swelling, mass and lump, right lower limb (principal)

== ENCOUNTER 2017-11-26 13:09 | Emergency (ER) | payer MEDICARE, OTHER ==
--- NOTE | 2017-11-26 13:31 | ER Document Report ---
ED Medical Screen (RME) - General Chief Complaint: Leg Pain Stated Complaint: LEG PAIN Time Seen by Provider: 11/26/17 13:26 Mode of Arrival: Wheelchair Information source: Patient Notes: This is a 72-year-old man who presents to the emergency room with right hip pain. He states 2 days ago he was bending over to work on his generator and when he went to get up he experienced sudden right hip pain. He has had pain ever since. He does have a history of atrial fibrillation (is on warfarin), cellulitis in the past. CARE physician: Dr. Bennett TRAVEL OUTSIDE OF THE [place] IN LAST 30 DAYS: No - Related Data Allergies/Adverse Reactions: No Known Allergies Allergy (Verified 11/26/17 13:11) Past Medical History - Social History Chew tobacco use (# tins/day): Yes - / Frequency of alcohol use: None Drug Abuse: None Renal/ Medical History: Denies: Hx Peritoneal Dialysis Psychiatric Medical History: Denies: Hx Depression - Immunizations History of Influenza Vaccine for 12/2016 - 05/2017 Season: No Physical Exam - Vital signs Vitals: Temp Pulse Resp BP Pulse Ox 97.6 F 82 18 149/89 H 100 11/26/17 13:14 11/26/17 13:14 11/26/17 13:14 11/26/17 13:14 11/26/17 13:14 Course - Vital Signs Vital signs: Temp Pulse Resp BP Pulse Ox 97.6 F 82 18 149/89 H 100 11/26/17 13:14 11/26/17 13:14 11/26/17 13:14 11/26/17 13:14 11/26/17 13:14 Doctor's Discharge - Discharge Referrals: PEDRO GOMEZ MD [Primary Care Provider] - Follow up as needed
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
[2017-11-26] MEDS ORDERED: HYDROCODONE/ACETAMINOPHEN 5-325 MG TABLET PO ONE (14:05)
[2017-11-26] MEDS ORDERED: PREDNISONE 20 MG TABLET PO ONE (14:06)
--- NOTE | 2017-11-26 14:12 | RADIOLOGY REPORT (SQ) ---
EXAM DESCRIPTION: HIP RIGHT AP/LATERAL COMPLETED DATE/TIME: 11/26/2017 1:59 pm REASON FOR STUDY: right hip pain COMPARISON: None. NUMBER OF VIEWS: Three views. TECHNIQUE: AP pelvis and additional frog-leg view of the right hip. LIMITATIONS: None. FINDINGS: MINERALIZATION: Normal. RIGHT HIP: No fracture or dislocation. No worrisome bone lesions. LEFT HIP: No fracture or dislocation. No worrisome bone lesions. PUBIS AND ISCHIUM: No fracture. PELVIS: No fracture. SACRUM: No fracture or dislocation. No worrisome bone lesions. LOWER LUMBAR SPINE: No fracture or dislocation. No worrisome bone lesions. Moderate to severe degene rative changes involving the lower lumbar spine. SOFT TISSUES: Moderate arterial calcifications involving the common femoral arteries. OTHER: No other significant finding. IMPRESSION: 1. No significant abnormalities involving the right hip. 2. Moderate to severe degenerative changes involving the lower lumbar spine. TECHNICAL DOCUMENTATION: JOB ID: [id number] [employer]- All Rights Reserved Reading location - IP/workstation name: [email or web address]
[2017-11-26 15:15] LABS: PROTHROMBIN TIME 65.3 SEC (11.4-15.4)
[2017-11-26 15:16] LABS: INTERNATIONAL RATION (INR) 7.26
--- NOTE | 2017-11-26 15:58 | RADIOLOGY REPORT (SQ) ---
EXAM DESCRIPTION: CT LUMBAR SPINE WITHOUT COMPLETED DATE/TIME: 11/26/2017 3:39 pm REASON FOR STUDY: INRof >7 and right hip and leg pain COMPARISON: None. TECHNIQUE: Axial images acquired through the lumbar spine without intravenous contrast. Images revi ewed with lung, soft tissue and bone windows. Reconstructed coronal and sagittal MPR images reviewed . All images stored on PACS. All CT scanners at this facility use dose modulation, iterative reconstruction, and/or weight based d osing when appropriate to reduce radiation dose to as low as reasonably achievable (ALARA). [facility]: Dose Right [facility]: CareDose [facility]: Dose Right [facility]: Teradose 4D [facility]: StockTwits RADIATION DOSE: mGy. LIMITATIONS: None. FINDINGS: SEGMENTATION: Normal. No transitional anatomy. ALIGNMENT: Normal. VERTEBRAL BODIES: No fractures. No dislocation. No acute findings. DISCS: Multilevel disc space narrowing, most pronounced at L4-L5. Prominent osteophytes. Study limi ami by lack of intrathecal contrast. PEDICLES, TRANSVERSE PROCESSES: No fractures. No dislocation. No acute findings. FACETS, POSTERIOR ELEMENTS: Multilevel facet arthropathy. No fractures. No dislocation. No spinal stenosis. HARDWARE: None in the spine. VISUALIZED RIBS: No fractures. SOFT TISSUES: No significant or acute finding in adjacent soft tissues. OTHER: No other significant finding. IMPRESSION: MULTILEVEL CHRONIC DEGENERATIVE CHANGES. NO ACUTE FINDINGS. TECHNICAL DOCUMENTATION: JOB ID: [id number] Quality ID # [id number]: Final reports with documentation of one or more dose reduction techniques (e.g., Au tomated exposure control, adjustment of the mA and/or kV according to patient size, use of iterative reconstruction technique) 2010 [employer]- All Rights Reserved Reading location - IP/workstation name: [email or web address]
--- NOTE | 2017-11-26 16:04 | RADIOLOGY REPORT (SQ) ---
EXAM DESCRIPTION: CT PELVIS WITHOUT COMPLETED DATE/TIME: 11/26/2017 3:39 pm REASON FOR STUDY: INRof >7 and right hip and leg pain COMPARISON: CT abdomen and pelvis dated 06/20/2017. TECHNIQUE: CT scan of the pelvis performed without intravenous or oral contrast. Images reviewed wi th soft tissue and bone windows. Reconstructed coronal and sagittal MPR images reviewed. All images stored on PACS. All CT scanners at this facility use dose modulation, iterative reconstruction, and/or weight based d osing when appropriate to reduce radiation dose to as low as reasonably achievable (ALARA). [facility]: Dose Right [facility]: CareDose [facility]: Dose Right [facility]: Teradose 4D [facility]: bubl RADIATION DOSE: CT Rad equipment meets quality standard of care and radiation dose reduction techniq ues were employed. CTDIvol: 41.7 mGy. DLP: 1443 mGy-cm. mGy. LIMITATIONS: None. FINDINGS: PELVIC BONES: No acute fracture. No worrisome bone lesions. VISUALIZED SPINE: No acute findings. HIP(S): No acute fracture or dislocation. No worrisome bone lesions. PELVIC SOFT TISSUES: No significant findings. Incidental bladder diverticulum, also present on the p rior CT. EXTRAPELVIC SOFT TISSUES: No significant findings. OTHER: No other significant finding. IMPRESSION: NO ACUTE OR SIGNIFICANT FINDINGS. TECHNICAL DOCUMENTATION: JOB ID: [id number] Quality ID # [id number]: Final reports with documentation of one or more dose reduction techniques (e.g., Au tomated exposure control, adjustment of the mA and/or kV according to patient size, use of iterative reconstruction technique) 2010 [employer]- All Rights Reserved Reading location - IP/workstation name: [email or web address]
[2017-11-26] MEDS ORDERED: PHYTONADIONE INJ 10 MG/1 ML AMPULE SUBCUT ONE (16:25)
[2017-11-26 16:31] LABS: ABSOLUTE EOSINOPHILS # (AUTO) 0.2 10^3/uL (0.0-0.6); ABSOLUTE LYMPHOCYTES (AUTO) 1.4 10^3/uL (0.5-4.7); ABSOLUTE MONOCYTES (AUTO) 0.8 10^3/uL (0.1-1.4); ABSOLUTE NEUT (AUTO) 3.1 10^3/uL (1.7-8.2); BASOPHILS % (AUTO) 0.6 % (0-2); EOSINOPHILS % (AUTO) 2.8 % (0-6); HEMOGLOBIN 13.8 g/dL (13.5-17.0); LYMPHOCYTES % (AUTO) 25.3 % (13-45); MEAN CORPUSCULAR HEMOGLOBIN 31.4 pg (27.0-33.4); MEAN CORPUSCULAR HGB CONC 33.7 g/dL (32.0-36.0); MEAN CORPUSCULAR VOLUME 93 fl (80-97); MONOCYTES % (AUTO) 14.1 % (3-13); PLATELET COUNT 176 10^3/uL (150-450); RED BLOOD COUNT 4.39 10^6/uL (4.35-5.55); RED CELL DISTRIBUTION WIDTH 13.9 % (11.5-14.0); SEGMENTED NEUTROPHILS % (AUTO) 57.2 % (42-78); TOTAL CELLS COUNTED % (AUTO) 100 %; WHITE BLOOD COUNT 5.5 10^3/uL (4.0-10.5)
[2017-11-26 16:34] LABS: ALANINE AMINOTRANSFERASE 28 U/L (21-72); ALBUMIN 3.9 g/dL (3.5-5.0); ALKALINE PHOSPHATASE 61 U/L (38-126); ANION GAP 10 (5-19); ASPARTATE AMINO TRANSFERASE 24 U/L (17-59); BILIRUBIN,DIRECT 0.5 mg/dL (0.0-0.4); BILIRUBIN,TOTAL 1.2 mg/dL (0.2-1.3); BLOOD UREA NITROGEN 22 mg/dL (7-20); CALCIUM 8.9 mg/dL (8.4-10.2); CARBON DIOXIDE 25 mmol/L (22-30); CHLORIDE 105 mmol/L (98-107); GLUCOSE 139 mg/dL (75-110); POTASSIUM 4.2 mmol/L (3.6-5.0); SODIUM 140.3 mmol/L (137-145); TOTAL PROTEIN 7.2 g/dL (6.3-8.2)
[2017-11-26 17:07] VITALS: BP 105/69
== END 2017-11-26 17:34 | disposition home or self-care (01) ==
LOC: ER 13:09
DX: M54.31 Sciatica, right side (principal); M79.604 Pain in right leg; R79.1 Abnormal coagulation profile; I48.91 Unspecified atrial fibrillation; Z79.02 Long term (current) use of antithrombotics/antiplatelets
CPT/HCPCS: 99284; 96372; 36415; 85025; 85610; 80053; 73502; 72131; 72192; J3430; A9270 ×2; J7512

== ENCOUNTER → 2017-12-01 | Outpatient (CLI) | payer MEDICARE, OTHER ==
[2017-12-01 13:50] LABS: INTERNATIONAL RATION (INR) 1.23
[2017-12-01 14:00] LABS: PROTHROMBIN TIME 16.2 SEC (11.4-15.4)
== END ==
LOC: OD 10:10
PROVIDERS: ATTEND Internal Medicine
DX: Z51.81 Encounter for therapeutic drug level monitoring (principal); Z79.01 Long term (current) use of anticoagulants
CPT/HCPCS: 36415; 85610

== ENCOUNTER → 2017-12-14 | Outpatient (CLI) | payer MEDICARE, OTHER ==
[2017-12-14 09:11] LABS: INTERNATIONAL RATION (INR) 2.42; PROTHROMBIN TIME 27.5 SEC (11.4-15.4)
== END ==
LOC: OD 08:07
PROVIDERS: ATTEND Internal Medicine
DX: R79.1 Abnormal coagulation profile (principal)
CPT/HCPCS: 36415; 85610

== ENCOUNTER → 2017-12-21 | Outpatient (CLI) | payer MEDICARE, OTHER ==
[2017-12-21 12:27] LABS: INTERNATIONAL RATION (INR) 2.96; PROTHROMBIN TIME 32.2 SEC (11.4-15.4)
== END ==
LOC: OD 11:05
PROVIDERS: ATTEND Internal Medicine
DX: Z51.81 Encounter for therapeutic drug level monitoring (principal); Z79.01 Long term (current) use of anticoagulants
CPT/HCPCS: 36415; 85610

== ENCOUNTER → 2018-01-11 | Outpatient (CLI) | payer MEDICARE ==
[2018-01-11 11:09] LABS: INTERNATIONAL RATION (INR) 2.15
== END ==
LOC: OD 09:59
PROVIDERS: ATTEND Internal Medicine
DX: Z51.81 Encounter for therapeutic drug level monitoring (principal); Z79.01 Long term (current) use of anticoagulants
CPT/HCPCS: 36415; 85610

== ENCOUNTER → 2018-01-25 | Outpatient (CLI) | payer MEDICARE ==
[2018-01-25 11:28] LABS: INTERNATIONAL RATION (INR) 2.67; PROTHROMBIN TIME 29.7 SEC (11.4-15.4)
== END ==
LOC: OD 10:33
PROVIDERS: ATTEND Internal Medicine
DX: Z79.01 Long term (current) use of anticoagulants (principal)
CPT/HCPCS: 36415; 85610

== ENCOUNTER → 2018-02-15 | Outpatient (CLI) | payer MEDICARE ==
[2018-02-15 15:32] LABS: INTERNATIONAL RATION (INR) 2.23; PROTHROMBIN TIME 25.7 SEC (11.4-15.4)
== END ==
LOC: OD 14:16
PROVIDERS: ATTEND Internal Medicine
DX: Z79.01 Long term (current) use of anticoagulants (principal)
CPT/HCPCS: 36415; 85610

== ENCOUNTER → 2018-03-21 | Outpatient (CLI) | payer MEDICARE ==
[2018-03-21 12:38] LABS: PROTHROMBIN TIME 21.7 SEC (11.4-15.4)
== END ==
LOC: OD 11:48
PROVIDERS: ATTEND Internal Medicine
DX: Z51.81 Encounter for therapeutic drug level monitoring (principal); Z79.01 Long term (current) use of anticoagulants
CPT/HCPCS: 36415; 85610

== ENCOUNTER → 2018-04-26 | Outpatient (CLI) | payer MEDICARE ==
[2018-04-26 11:07] LABS: INTERNATIONAL RATION (INR) 1.51
== END ==
LOC: OD 10:16
PROVIDERS: ATTEND Internal Medicine
DX: Z51.81 Encounter for therapeutic drug level monitoring (principal); Z79.01 Long term (current) use of anticoagulants
CPT/HCPCS: 36415; 85610

== ENCOUNTER → 2018-05-19 | Outpatient (CLI) | payer MEDICARE ==
[2018-05-19 10:06] LABS: INTERNATIONAL RATION (INR) 1.12
== END ==
LOC: OD 09:23
PROVIDERS: ATTEND Internal Medicine
DX: Z79.01 Long term (current) use of anticoagulants (principal)
CPT/HCPCS: 36415; 85610